=== PATIENT | female | born 1995 | race African-American/Black ===

== ENCOUNTER 2019-07-10 12:53 | Emergency (ER) | payer BC, MEDICAID ==
[~2019-07-10] VITALS: Ht 172.7 cm; Wt 81.6 kg
[2019-07-10 12:56] VITALS: BP 119/77
--- NOTE | 2019-07-10 13:02 | NUR ---
ED Nurse Note: Pt walked in due to sore throat and difficulty swallowing x 3 days. No respiratory distress and speaks in full sentences. AAO x4 and ambulatory.
[2019-07-10] MEDS ORDERED: AMOXICILLIN500 MG ORAL (13:08)
--- NOTE | 2019-07-10 13:14 | Emergency Room Report ---
History of Present Illness General Chief Complaint: Sore Throat Source: Patient Present Illness HPI 24-year-old female with history of tonsillectomy and by self complaining of sore throat x3 days. Pain is a 7 out of 10, painful to swallow. States had tactile fever last night. Denies cough, nasal congestion, shortness of breath, chest pain, vomiting, diarrhea, abdominal pain. No recent travel. No sick contacts. Took ibuprofen yesterday. Allergies: Coded Allergies: No Known Allergies (Unverified , 07/10/19) Patient History Past Medical History: none Past Surgical History: other - tonsillectomy Social History: Denies: smoking, alcohol use, drug use Last Menstrual Period: May, 2019 Nursing Documentation-[facility] Past Medical History: No Stated History Review of Systems All Other Systems: negative except mentioned in HPI Physical Exam Vital Signs Date Time Temp Pulse Resp B/P (MAP) Pulse Ox O2 Delivery O2 Flow Rate FiO2 07/10/19 12:56 98.6 106 18 119/77 (91) 96 Room Air Sp02 EP Interpretation: reviewed General Appearance: no apparent distress, alert, GCS 15, non-toxic ENT: normal voice, TMs + canals normal, uvula midline, moist mucus membranes, other - Mild erythema, no exudates, no peritonsillar abscess, no hot potato voice. Respiratory: chest non-tender, lungs clear, normal breath sounds, speaking full sentences Cardiovascular #1: regular rate, rhythm, no edema Neurologic: alert, oriented x3, responsive, normal gait, speech normal Psychiatric: mood/affect normal Skin: no rash, warm/dry Medical Decision Making PA Attestation This patient was seen under the direct supervision of Dr. Vo, who directed all aspects of care and diagnostic interpretation. Diagnostic Impression: Primary Impression: Acute pharyngitis ER Course ED course HPI: 24-year-old female with history of tonsillectomy and by self complaining of sore throat x3 days. Pain is a 7 out of 10, painful to swallow. States had tactile fever last night. Denies cough, nasal congestion, shortness of breath, chest pain, vomiting, diarrhea, abdominal pain. No recent travel. No sick contacts. Took ibuprofen yesterday. Ddx: mononucleosis, viral syndrome, strep throat, abscess, adult epiglottitis, foreign body, and others. HPI & PE consistent with: Acute pharyngitis Orders/ Interventions: None Patient is well-appearing, afebrile. Patient is speaking full sentences without respiratory distress. No evidence of peritonsillar abscess on physical exam. Disposition: Patient discharged with a prescription of amoxicillin x10 days. Treat with otc analgesic of choice (ibuprofen or acetaminophen every 6 hrs) as needed for pain or fever 100.4F. Encouraged increased fluid intake & rest, avoid strenuous exercise. Diet modifications: avoid greasy, spicy foods, and dairy products until better. Take medications as directed. Instructed on how to take meds and possible side effects of medication. Gargle w/ warm salt water for throat pain, eat soft, easy to swallow foods. At this time pt. is stable for d/c to home. Will provide printed patient care instructions, and any necessary prescriptions. Care plan and follow up instructions have been discussed with the patient prior to discharge. Please note that this Emergency Department Report was dictated using [employer] technology software, occasionally this can lead to erroneous entry secondary to interpretation by the dictation equipment. Last Vital Signs Date Time Temp Pulse Resp B/P (MAP) Pulse Ox O2 Delivery O2 Flow Rate FiO2 07/10/19 12:56 98.6 106 18 119/77 96 Room Air Status: unchanged Disposition: HOME, SELF-CARE Condition: Stable Scripts Amoxicillin* (AMOXIL*) 500 Mg Capsule 500 MG ORAL EVERY 8 HOURS for 10 Days, #30 CAP Prov: Rubi Sandoval 07/10/19 Referrals: [facility] Patient Instructions: Pharyngitis, [id number] Additional Instructions: Take prescription as prescribed. Follow-up with PCP in 2 days or return to ER if worsening symptoms, new symptoms or sudden change in condition. Rubi Sandoval Jul 10, 2019 13:14
[2019-07-10 13:17] VITALS: BP 125/70
--- NOTE | 2019-07-10 13:17 | NUR ---
Note rejijagdish in EDM - 07/10/19 at 1318 by DAISY ER DISCHARGE NOTE: Patient is cleared to be discharged per PA, pt is aox4, on room air, with stable vital signs. pt was given dc and prescription instructions, pt was able to verbalize understanding, pt id band and iv site removed without complications. pt is able to ambulate with steady gait. pt took all belongings.
--- NOTE | 2019-07-10 13:17 | NUR ---
ER DISCHARGE NOTE: Patient is cleared to be discharged per PA, pt is aox4, on room air, with stable vital signs. pt was given dc and prescription instructions, pt was able to verbalize understanding, pt id band removed without complications. pt is able to ambulate with steady gait. pt took all belongings.
== END 2019-07-10 13:17 | disposition home or self-care (01) ==
LOC: EMR 13:06
DX: J02.9 Acute pharyngitis, unspecified (principal)
CPT/HCPCS: 99282